=== PATIENT | male | born 1980 | race Caucasian/White ===

== ENCOUNTER 2016-08-03 15:33 | Emergency (ER) | payer SELFPAY ==
[2016-08-03 15:45] VITALS: BP 157/74
--- NOTE | 2016-08-03 16:05 | UC ---
Hand/Wrist HPI - HPI Summary HPI Summary: Got upset this morning and slammed side of R fist down on counter. Now has pain , bruising, and swelling in distal 4th and 5th MCs. Denies prior sx or fx in R hand. - History Of Current Complaint Chief Complaint: UCUpperExtremity Stated Complaint: RIGHT HAND INJURY Time Seen by Provider: 08/03/16 15:40 Hx Obtained From: Patient ?: No Onset/Duration: Sudden Onset Severity Initially: Moderate Severity Currently: Moderate Character Of Pain: Dull Aggravating Factor(s): Movement Alleviating: Rest, Ice Associated Signs And Symptoms: Positive: Swelling, Redness, Bruising Related History: Dominant Hand Right - Allergies/Home Medications Allergies/Adverse Reactions: Allergies Allergy/AdvReac Type Severity Reaction Status Date / Time No Known Allergies Allergy Verified 08/03/16 15:45 PMH/Surg Hx/FS Hx/Imm Hx Cardiovascular History Of: Reports: Hypertension - not treated - Surgical History Surgical History: None - Family History Known Family History: Positive: Hypertension - Social History Occupation: Employed Part-time - [employer] Lives: With Family Alcohol Use: None Substance Use Type: None Smoking Status (MU): Heavy Every Day Tobacco Smoker Type: Cigarettes Amount Used/How Often: 1/2 PPD - Immunization History Most Recent Influenza Vaccination: not this season Review of Systems Constitutional: Negative Skin: Negative Eyes: Negative ENT: Negative Respiratory: Negative Cardiovascular: Negative Gastrointestinal: Negative Genitourinary: Negative Motor: Negative Neurovascular: Negative 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: 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, 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: Negative Psychological: Negative All Other Systems Reviewed And Are Negative: Yes Physical Exam Triage Information Reviewed: Yes Appearance: Well-Appearing, Well-Nourished, Pain Distress - with R hand use Vital Signs: Initial Vital Signs Temp 98.3 F 08/03/16 15:39 Pulse 60 08/03/16 15:39 Resp 18 08/03/16 15:39 BP 157/74 08/03/16 15:39 Vital Signs Reviewed: Yes Eye Exam: Normal Eyes: Positive: Conjunctiva Clear ENT Exam: Normal ENT: Positive: Normal ENT inspection, Hearing grossly normal, Pharynx normal, TMs normal Dental Exam: Normal Neck exam: Normal Neck: Positive: Supple, Nontender, No Lymphadenopathy Respiratory Exam: Normal Respiratory: Positive: Chest non-tender, Lungs clear, Normal breath sounds, No respiratory distress, No accessory muscle use Cardiovascular Exam: Normal Cardiovascular: Positive: RRR, No Murmur 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: Positive: Strength 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 R hand contusion. Eleavted blood pressure due to pain Discharge - Discharge Plan Condition: Stable Disposition: HOME Prescriptions: Naproxen [Naproxen 500 MG TABS] 500 mg PO BID #14 tab Patient Education Materials: Contusion in Adults (ED), Hematoma (ED) Forms: *Work Release Additional Instructions: Try to avoid putting direct pressure on the painful area. If you are not fully back to normal activities within a week, please see your primary care provider or return here.
--- NOTE | 2016-08-03 16:23 | RAD ---
INDICATION: Pain and swelling at the fifth metacarpal phalangeal joint following injury. COMPARISON: None. TECHNIQUE: AP, lateral, and oblique views RIGHT hand. REPORT AND IMPRESSION: Soft tissue swelling is noted over the dorsal aspect of the hand most prominent at the level of the metacarpals and metacarpal phalangeal joints. Negative for fracture or malalignment.
== END 2016-08-03 16:28 | disposition home or self-care (01) ==
LOC: UCCORT 15:33
DX: S60.221A Contusion of right hand, initial encounter (principal); W22.09XA Striking against other stationary object, initial encounter; Y93.9 Activity, unspecified; Y99.9 Unspecified external cause status; R03.0 Elevated blood-pressure reading, without diagnosis of hypertension; F17.210 Nicotine dependence, cigarettes, uncomplicated
CPT/HCPCS: 99212; G0463

== ENCOUNTER 2017-01-21 19:39 | Emergency (ER) | payer OTHER ==
[2017-01-21] MEDS ORDERED: Lidocaine 1% MPF* 2 ML VIAL INJ ONE (20:09)
[2017-01-21] MEDS ORDERED: Cephalexin CAP* 500 MG PO ONE (20:10)
[2017-01-21 20:11] VITALS: BP 171/90
[2017-01-21] MEDS ORDERED: Tetan/Diph/Pertus SYR(Tdap)* 0.5 ML SYR(BOOSTRIX) use SYR IM ONE (20:14)
--- NOTE | 2017-01-21 20:14 | UC ---
Laceration HPI - HPI Summary HPI Summary: patient cut the left index finger on a utility knife a few hours ago. clean cut , but deep, - History Of Current Complaint Stated Complaint: LACERATION LEFT INDEX FINGER Time Seen by Provider: 01/21/17 20:03 Hx Obtained From: Patient Laceration Location: Finger Mechanism Of Injury: Sharp Trauma Onset/Duration: Sudden Onset, Lasting Hours Severity: Moderate Aggravating Factors: Movement - Allergies/Home Medications Allergies/Adverse Reactions: Allergies Allergy/AdvReac Type Severity Reaction Status Date / Time No Known Allergies Allergy Verified 08/03/16 15:45 PMH/Surg Hx/FS Hx/Imm Hx Previously Healthy: Yes - Surgical History Surgical History: None - Family History Known Family History: Positive: Hypertension - Social History Alcohol Use: None Substance Use Type: None Smoking Status (MU): Heavy Every Day Tobacco Smoker Type: Cigarettes Amount Used/How Often: 1/2 PPD - Immunization History Most Recent Influenza Vaccination: not this season Review of Systems Constitutional: Negative Skin: Other - cut Eyes: Negative ENT: Negative Respiratory: Negative Cardiovascular: Negative Gastrointestinal: Negative Genitourinary: Negative Motor: Negative Neurovascular: Negative 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: Negative Neurological: Negative Psychological: Negative Is Patient Immunocompromised?: No All Other Systems Reviewed And Are Negative: Yes Physical Exam Triage Information Reviewed: Yes Appearance: Well-Appearing, Well-Nourished, Pain Distress Vital Signs Reviewed: Yes Eye Exam: Normal ENT Exam: Normal Dental Exam: Normal Neck exam: Normal Respiratory Exam: Normal Cardiovascular Exam: Normal Abdominal Exam: Normal Bowel Sounds: Positive: Present 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 Exam: Normal 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: Positive: Strength Intact, ROM Intact, No Edema Neurological Exam: Normal Neurological: Positive: Alert, Muscle Tone Normal Psychological Exam: Normal Skin: Positive: Other - laceration to right finger Laceration Repair - Laceration Repair 1 Description: Linear Laceration Size After Repair: Length (cm) - 4 cm Modified For Repair: No Type Injection: Digital Anesthesia Used: 1.0% Lido Cleansing Completed Via Routine Prep: Yes Irrigation With Pressure Irrigation Device: No Closure Material: Sutures Closure Method: Single Layer Suture Of: Skin Laceration Course/Dx - Course/Dx Course Of Treatment: hx obtained, exam performed ,meds reviewed, lac repaired, tetanus given. - Differential Dx - Laceration/Wound Differental Diagnoses: Laceration Provider Diagnoses: 4 cm laceration to the left index finger Discharge - Discharge Plan Condition: Stable Disposition: HOME Prescriptions: Cephalexin CAP* [Keflex CAP*] 500 mg PO BID #13 cap Patient Education Materials: Laceration (ED) Additional Instructions: 1. keep the area clean and dry 2. follow up if you develop any swelling, increase in pain, redness or unusual drainage. 3. return in 7 -10 days for removal of sutures
== END 2017-01-21 20:48 | disposition home or self-care (01) ==
LOC: UCCORT 19:39
DX: S61.211A Laceration without foreign body of left index finger without damage to nail, initial encounter (principal); W26.0XXA Contact with knife, initial encounter; F17.210 Nicotine dependence, cigarettes, uncomplicated
CPT/HCPCS: 12002; 90471; 90715; 99212; A9270-GY; G0463

== ENCOUNTER 2017-03-31 14:38 | Emergency (ER) | payer OTHER ==
--- NOTE | 2017-03-31 15:46 | UC ---
Throat Pain/Nasal Meek HPI - HPI Summary HPI Summary: 36 year old male presents with complains of sinus congestion and cough. - History of Current Complaint Stated Complaint: COLD/SORE THROAT/SWEATS Time Seen by Provider: 03/31/17 15:45 Hx Obtained From: Patient Onset/Duration: Sudden Onset Severity: Moderate Pain Scale Used: 0-10 Numeric - 5 Cough: Nonproductive Associated Signs & Symptoms: Positive: Dysphagia, Sinus Discomfort, Nasal Discharge Related History: Seasonal Allergies - Allergies/Home Medications Allergies/Adverse Reactions: Allergies Allergy/AdvReac Type Severity Reaction Status Date / Time No Known Allergies Allergy Verified 03/31/17 15:54 PMH/Surg Hx/FS Hx/Imm Hx Previously Healthy: Yes - Surgical History Surgical History: None - Family History Known Family History: Positive: Hypertension - Social History Alcohol Use: None Substance Use Type: None Smoking Status (MU): Heavy Every Day Tobacco Smoker Type: Cigarettes Amount Used/How Often: 1/2 PPD - Immunization History Most Recent Influenza Vaccination: not this season Review of Systems Constitutional: Negative Skin: Negative Eyes: Negative ENT: Sore Throat, Nasal Discharge, Sinus Congestion, Sinus Pain/Tenderness Respiratory: Negative Cardiovascular: Negative Gastrointestinal: Negative Genitourinary: Negative Motor: Negative Neurovascular: Negative 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: Negative Neurological: Negative Psychological: Negative All Other Systems Reviewed And Are Negative: Yes Physical Exam Triage Information Reviewed: Yes Vital Signs Reviewed: Yes Eye Exam: Normal ENT: Positive: Pharyngeal erythema, Nasal congestion, Nasal drainage, Sinus tenderness Dental Exam: Normal Neck exam: Normal Neck: Positive: 1 Respiratory Exam: Normal Cardiovascular Exam: Normal Abdominal Exam: Normal 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 Exam: Normal Neurological Exam: Normal Psychological Exam: Normal Skin Exam: Normal Throat Pain/Nasal Course/Dx - Differential Dx/Diagnosis Provider Diagnoses: sinusitis Discharge - Discharge Plan Condition: Stable Disposition: HOME Prescriptions: Amoxicillin/Clavulanate TAB* [Augmentin TAB 875*] 875 mg PO BID #20 tab LoraTADine TAB(NF) [Claritin 10 MG TAB(NF)] 10 mg PO DAILY #30 tab Magic M W2 Issa/Maal/Nyst/Lido* 5 ml SWISH SPIT QID PRN #120 ml PRN Reason: Pain Patient Education Materials: Sinusitis (ED) Referrals: No Primary Care Phys,NOPCP [Primary Care Provider] -
[2017-03-31 15:59] VITALS: BP 131/88
== END 2017-03-31 16:40 | disposition home or self-care (01) ==
LOC: UCCORT 14:38
DX: J32.9 Chronic sinusitis, unspecified (principal); F17.210 Nicotine dependence, cigarettes, uncomplicated
CPT/HCPCS: 87502; 87651; 99211; G0463

== ENCOUNTER 2017-06-18 17:48 | Emergency (ER) | payer OTHER ==
[2017-06-18 19:11] VITALS: BP 127/83
--- NOTE | 2017-06-18 19:28 | UC ---
Respiratory Complaint HPI - HPI Summary HPI Summary: Pt states x 3 weeks congestion, sinus pressure, pnd, and sore throat. Pt stats sx have been wax and waning as has fiance. Pt states this am sore throat and secretions caused him to gag, cough and post-tussive emesis. No further vomiting. no nausea. No enrique, vision changes. Pt states has used otc sudafed and nyquil intermittently with temp relief. Pt's medications reviewed this visit. - History of Current Complaint Chief Complaint: UCRespiratory Stated Complaint: COUGH/CONGESTION Time Seen by Provider: 06/18/17 19:28 Hx Obtained From: Patient Onset/Duration: Gradual Onset Timing: Intermittent Episodes - days Severity Initially: Moderate Severity Currently: Moderate Pain Intensity: 5 Pain Scale Used: 0-10 Numeric Character: Cough: Productive, Sputum Description: - green Associated Signs And Symptoms: Positive: Fever, URI, Nasal Congestion - Allergies/Home Medications Allergies/Adverse Reactions: Allergies Allergy/AdvReac Type Severity Reaction Status Date / Time No Known Allergies Allergy Verified 06/18/17 19:01 Home Medications: Home Medications Acetaminophen [Acetaminophen Extra Strength] 1,000 mg PO SEE INSTRUCTIONS PRN [History Confirmed 06/18/17] Dm/Acetaminophen/Doxylamine [Vicks Nyquil Cold & Flu N 15-6.25-325 mg] 2 cap PO BEDTIME PRN 06/18/17 [History Confirmed 06/18/17] Phenylephrine/Dm/Acetaminop/GG [Vicks Dayquil Severe Cold] 2 tab PO SEE INSTRUCTIONS PRN 06/18/17 [History Confirmed 06/18/17] Pseudoephedrine TAB* [Sudafed TAB*] 10 mg PO ONCE 06/18/17 [History Confirmed ] PMH/Surg Hx/FS Hx/Imm Hx Previously Healthy: Yes - Surgical History Surgical History: None - Family History Known Family History: Positive: Hypertension - Social History Occupation: Employed Full-time Lives: With Family Alcohol Use: None Substance Use Type: None Smoking Status (MU): Light Every Day Tobacco Smoker Type: Cigarettes Amount Used/How Often: 1/2 PPD - Immunization History Most Recent Influenza Vaccination: not this season Review of Systems Constitutional: Negative Skin: Negative Eyes: Negative ENT: Sore Throat, Nasal Discharge, Sinus Congestion Respiratory: Cough Cardiovascular: Negative Gastrointestinal: Negative Genitourinary: Negative All Other Systems Reviewed And Are Negative: Yes Physical Exam Triage Information Reviewed: Yes Appearance: Well-Appearing, No Pain Distress, Well-Nourished Vital Signs: Initial Vital Signs Temp 98.5 F 06/18/17 19:05 Pulse 69 06/18/17 19:05 Resp 18 06/18/17 19:05 BP 127/83 06/18/17 19:05 Pulse Ox 100 06/18/17 19:05 Vital Signs Reviewed: Yes Eye Exam: Normal Eyes: Positive: Conjunctiva Clear ENT: Positive: Pharyngeal erythema, Nasal congestion, Nasal drainage, Sinus tenderness - max sinuses, Uvula midline, Other - fluid right TM turbinates inflammed + PND no exudate, no erythema uvula midline Dental Exam: Normal Neck exam: Normal Neck: Positive: Supple Respiratory Exam: Normal Respiratory: Positive: Chest non-tender, Lungs clear, Normal breath sounds, No respiratory distress, No accessory muscle use Cardiovascular Exam: Normal Cardiovascular: Positive: RRR Abdominal Exam: Normal Abdomen Description: Positive: Nontender, No Organomegaly Bowel Sounds: Positive: Present 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 Exam: Normal Neurological Exam: Normal Neurological: Positive: Alert Psychological Exam: Normal Skin Exam: Normal UC Diagnostic Evaluation - Laboratory O2 Sat by Pulse Oximetry: 100 Respiratory Course/Dx - Course Course Of Treatment: Pt witn 3 weeks intermittent sinus congestion, PND, sore throat and cough. pt with inflammed turbinates with thick PND. will Rx flonase , abx for sinuses. humidified air. decongestant. secretion precaution. work note. return precautions - Differential Dx/Diagnosis Provider Diagnoses: sinusitis Discharge - Sign-Out/Discharge Documenting (check all that apply): Discharge - Discharge Plan Condition: Stable Disposition: HOME Prescriptions: Amoxicillin PO (*) [Amoxicillin 875 MG (*)] 875 mg PO BID #20 tab Fluticasone NASAL SPRAY 50MCG* [Flonase NASAL SPRAY 50MCG*] 2 spray BOTH NARES DAILY #1 btl Patient Education Materials: Sinusitis (ED) Forms: *Gen. Provider Communication, *Work Release Referrals: No Primary Care Phys,NOPCP [Primary Care Provider] - Additional Instructions: - Stay well hydrated. Drink plenty of non-alcoholic, non-caffinated beverages. - Alternate ibuprofen (Advil, Motrin) 600mg and Tylenol every 3 hours for pain or fever. Take with food. Do NOT take for more than 4-5 days. - okay to gargle and spit with warm salt water, 2-3 times a day - These infections are spread by secretions - do NOT share eating or drinking utensils - clean items you share with other people such as cell phones, computer mouse, TV remote, computer tablets, etc. After you have taken antibiotics for 3 days, change your toothbrush and your pillowcase. - use nasal spray as prescribed - it is recommended you take over the counter decongestant - get plenty of restful sleep - humidify the air in the room where you sleep - boil water, run a hot steam shower, vaporizer, cups of water by heat register - okay to take over the counter decongestant and cough medication - contact your doctor, return here, or go to the emergency department with questions or concerns - Billing Disposition and Condition Condition: STABLE Disposition: HOME
== END 2017-06-18 19:57 | disposition home or self-care (01) ==
LOC: UCCORT 17:48
DX: J32.9 Chronic sinusitis, unspecified (principal); F17.210 Nicotine dependence, cigarettes, uncomplicated
CPT/HCPCS: 99212; G0463

== ENCOUNTER 2017-08-06 16:10 | Emergency (ER) | payer OTHER ==
[2017-08-06 16:58] VITALS: BP 125/77
--- NOTE | 2017-08-06 17:19 | UC ---
UC General HPI - HPI Summary HPI Summary: pt is c/o a sore throat that started in the night and then some nasal congestion. denies fever, sneezing, itchy eyes or hx allergies. feels achy - History of Current Complaint Hx Obtained From: Patient Onset/Duration: Gradual Onset Timing: Constant Pain Intensity: 3 Aggravating: nothing Alleviating: nothing Associated Signs & Symptoms: Positive: Cough <Clair Zimmerman - Last Filed: 08/06/17 17:10> <Trish Mata - Last Filed: 08/06/17 18:06> - History of Current Complaint Chief Complaint: UCRespiratory Stated Complaint: CONGESTION, ACHY, SORE THROAT Time Seen by Provider: 08/06/17 16:51 - Allergy/Home Medications Allergies/Adverse Reactions: Allergies Allergy/AdvReac Type Severity Reaction Status Date / Time No Known Allergies Allergy Verified 08/06/17 16:59 PMH/Surg Hx/FS Hx/Imm Hx Previously Healthy: Yes - Surgical History Surgical History: None - Family History Known Family History: Positive: Hypertension - Social History Occupation: Employed Full-time Alcohol Use: None Substance Use Type: None Smoking Status (MU): Heavy Every Day Tobacco Smoker Type: Cigarettes Amount Used/How Often: 1/2 PPD Length of Time of Smoking/Using Tobacco: since age 18 Have You Smoked in the Last Year: Yes - Immunization History Most Recent Influenza Vaccination: not this season Vaccination Up to Date: Yes <Clair Zimmerman - Last Filed: 08/06/17 17:10> Review of Systems Constitutional: Negative Skin: Negative Eyes: Negative ENT: Sore Throat, Sinus Congestion Respiratory: Cough Cardiovascular: Negative Gastrointestinal: Negative Genitourinary: Negative Motor: Negative Neurovascular: Negative 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: Myalgia Neurological: Negative Psychological: Negative Is Patient Immunocompromised?: No All Other Systems Reviewed And Are Negative: Yes <Clair Zimmerman - Last Filed: 08/06/17 17:10> Physical Exam Triage Information Reviewed: Yes Appearance: Well-Appearing Vital Signs: Initial Vital Signs Temp 97.8 F 08/06/17 16:52 Pulse 61 08/06/17 16:52 Resp 14 08/06/17 16:52 BP 125/77 08/06/17 16:52 Pulse Ox 100 08/06/17 16:52 Vital Signs Reviewed: Yes Eyes: Positive: Conjunctiva Clear ENT: Positive: Pharyngeal erythema, Nasal congestion, TMs normal. Negative: Nasal drainage Neck: Positive: Supple, Nontender, Enlarged Nodes @ - peritonsilar Respiratory: Positive: Lungs clear, Normal breath sounds Cardiovascular: Positive: RRR, No Murmur Abdomen Description: Positive: Nontender, No Organomegaly, Soft Bowel Sounds: Positive: Present 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: Positive: ROM Intact Neurological: Positive: Alert Psychological: Positive: Age Appropriate Behavior Skin Exam: Normal <Clair Zimmerman - Last Filed: 08/06/17 17:10> Vital Signs: Initial Vital Signs Temp 97.8 F 08/06/17 16:52 Pulse 61 08/06/17 16:52 Resp 14 08/06/17 16:52 BP 125/77 08/06/17 16:52 Pulse Ox 100 08/06/17 16:52 <Trish Mata - Last Filed: 08/06/17 18:06> Diagnostics - Laboratory Diagnostic Studies Completed/Ordered: rapid strep=neg. tx supportive <Clair Zimmerman - Last Filed: 08/06/17 17:10> Course/Dx - Course Course Of Treatment: no itchy eyes or sneezing plus adenopathy thus do not feel allergies - Differential Dx - Multi-Symptom Provider Diagnoses: URI, sore throat <Clair Zimmerman - Last Filed: 08/06/17 17:10> Discharge - Sign-Out/Discharge Documenting (check all that apply): Discharge/Admit/Transfer - Billing Disposition and Condition Condition: STABLE Disposition: HOME <Clair Zimmerman - Last Filed: 08/06/17 17:10> - Billing Disposition and Condition Condition: STABLE Disposition: HOME <Trish Mata - Last Filed: 08/06/17 18:06> - Discharge Plan Condition: Stable Disposition: HOME Patient Education Materials: Pharyngitis (ED), Upper Respiratory Infection (ED) Forms: *Work Release Referrals: JACOB Puentes [Medical Doctor] - 7 Days Attestation Statement User Type: Provider - I was available for consult. This patient was seen by the DENN[facility]. The patient was not presented to, seen by, or examined by me. -Earlene <Trish Mata - Last Filed: 08/06/17 18:06>
== END 2017-08-06 17:46 | disposition home or self-care (01) ==
LOC: UCCORT 16:10
DX: J02.9 Acute pharyngitis, unspecified (principal); F17.210 Nicotine dependence, cigarettes, uncomplicated
CPT/HCPCS: 87651; 99211; G0463

== ENCOUNTER 2019-05-16 14:15 | Emergency (ER) | payer OTHER ==
--- NOTE | 2019-05-16 14:51 | UC ---
FLU HPI - HPI Summary HPI Summary: 39-year-old male whose had flulike illness since yesterday and a mild sore throat. - History of Current Complaint Stated Complaint: SORE THROAT, FLU LIKE ILLNESS Time Seen by Provider: 05/16/19 14:50 Hx Obtained From: Patient Onset/Duration: Gradual Onset Severity Currently: Mild Severity Initially: Mild Associated Signs & Symptoms: Positive: Fever, Myalgia, Cough, Sore Throat, Nasal Congestion, Headache - Allergy/Home Medications Allergies/Adverse Reactions: Allergies Allergy/AdvReac Type Severity Reaction Status Date / Time No Known Allergies Allergy Verified 05/16/19 15:00 Home Medications: Home Medications Acetaminophen [Acetaminophen Extra Strength] 1,000 mg PO SEE INSTRUCTIONS PRN [History Confirmed 08/06/17] Pseudoephedrine TAB* [Sudafed TAB*] 2 tab PO ONCE 06/18/17 [History Confirmed ] D-Methorphan/PE/Acetaminophen [Daytime Cold Multi-Symp Gelcap] 1 each PO PRN [History] Ibuprofen TAB* [Motrin TAB* 600 MG] 600 mg PO Q6H PRN 05/16/19 [History Confirmed 05/16/19] Phenol/Glycerin [Chloraseptic Max Sore Thr] 1 spr MT PRN 05/16/19 [History] PMH/Surg Hx/FS Hx/Imm Hx Previously Healthy: Yes - Surgical History Surgical History: None - Family History Known Family History: Positive: Hypertension - Social History Occupation: Unemployed Alcohol Use: None Substance Use Type: None Smoking Status (MU): Heavy Every Day Tobacco Smoker Type: Cigarettes Amount Used/How Often: 1/2 PPD Length of Time of Smoking/Using Tobacco: since age 18 Have You Smoked in the Last Year: Yes - Immunization History Most Recent Influenza Vaccination: not this season Vaccination Up to Date: Yes Review of Systems All Other Systems Reviewed And Are Negative: Yes Constitutional: Positive: Fever, Chills ENT: Positive: Sore Throat, Nasal Discharge, Sinus Congestion Respiratory: Positive: Cough - Nonproductive cough 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: Positive: Myalgia Is Patient Immunocompromised?: No Physical Exam Triage Information Reviewed: Yes Appearance: Well-Appearing, No Pain Distress, Well-Nourished Vital Signs Reviewed: Yes Eyes: Positive: Conjunctiva Clear ENT: Positive: Pharynx normal, Nasal drainage - Clear nasal coryza, TMs normal, Uvula midline Neck: Positive: Supple, Nontender, No Lymphadenopathy Respiratory: Positive: Lungs clear, Normal breath sounds, No respiratory distress, No accessory muscle use Cardiovascular: Positive: RRR, No Murmur, Pulses Normal, Brisk Capillary Refill 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 Exam: Normal Neurological Exam: Normal Psychological Exam: Normal Skin Exam: Normal Flu Course/Dx - Course Course Of Treatment: Rapid flu test: Negative Patient is comfortable here and in no distress. - Differential Dx/Diagnosis Provider Diagnosis: URI (upper respiratory infection), Flu-like symptoms Discharge ED - Sign-Out/Discharge Documenting (check all that apply): Patient Departure All imaging exams completed and their final reports reviewed: No Studies - Discharge Plan Condition: Good Disposition: HOME Patient Education Materials: Upper Respiratory Infection (ED) Referrals: Shantelle Esposito NP [Primary Care Provider] - Additional Instructions: Increase fluids, rest, [id number] cold medicines as directed. Follow-up with your primary care provider in 3 or 4 days if no improvement. - Billing Disposition and Condition Condition: GOOD Disposition: Home
[2019-05-16 15:10] VITALS: BP 121/82
[2019-05-16 15:30] LABS: Influenza A Molecular Negative (Negative); Influenza B Molecular Negative (Negative)
== END 2019-05-16 15:35 | disposition home or self-care (01) ==
LOC: UCCORT 14:15
DX: J06.9 Acute upper respiratory infection, unspecified (principal); F17.210 Nicotine dependence, cigarettes, uncomplicated
CPT/HCPCS: 99211; G0463